=== PATIENT | female | born 1970 | race Hispanic/Latino ===

== ENCOUNTER → 2023-06-09 | Day surgery (SDC) | payer OTHER ==
[~2023-06-09] MED LIST: FISH OIL 1,0001 EAC7 PO; GLUCAGON FOR INJ 1 MG VIAL ONE; HYOSCYAMINE SULFATE 0.5 MG/ML INJ ONE; LIDOCAINE HCL 2% LOCAL INJ 5 ML SDV VIAL INJ ONE; MAGNESIUM OXID400 MG PO; PROPOFOL IV EMULSION 10 MG/ML 20 ML VIAL ONE; VIT B12 PO; VIT D PO
[2023-06-09] MEDS: LACTATED RINGER'S 1,000 ML ONE (10:55)
[2023-06-09 13:30] VITALS: BP 105/71; PULSE 85; RESP 16; TEMP 97.1; O2SAT 100
== END | disposition home or self-care (01) ==
LOC: OR 10:38
PROVIDERS: ATTEND Internal Medicine Gastroenterology
DX: Z12.11 Encounter for screening for malignant neoplasm of colon (principal); K57.30 Diverticulosis of large intestine without perforation or abscess without bleeding; K64.8 Other hemorrhoids; K62.89 Other specified diseases of anus and rectum; Z01.810 Encounter for preprocedural cardiovascular examination
CPT/HCPCS: 45378; 81025; 93005; J7121; J1610; J1980; J2001